=== PATIENT | female | born 1945 | race Caucasian/White ===

== ENCOUNTER 2023-01-05 05:19 | Day surgery (SDC) | payer OTHER ==
[2023-01-05 10:21] LABS: HEMATOCRIT 22.2 % (32.4-45.2); HEMOGLOBIN 7.1 GM/dL (10.7-15.3); MCH 33.5 pg (25.7-33.7); MCHC 31.9 g/dl (32.0-36.0); MEAN PLT VOLUME 9.9 fl (7.5-11.1); PLATELET COUNT 684 10^3/uL (134-434); RBC 2.11 M/mm3 (3.60-5.2); RDW 29.3 % (11.6-15.6)
[2023-01-05 10:34] LABS: INR 1.14 (0.83-1.09); PROTHROMBIN TIME (PATIENT) 13.2 SEC (9.7-13.0)
[2023-01-05 10:48] VITALS: RESP 18
[2023-01-05 11:01] LABS: ANISOCYTOSIS 2+; MACROCYTOSIS 1+
[2023-01-05] MEDS ORDERED: FENTANYL CITRATE/PF 50 MCG/ML VIAL ONE (12:49)
[2023-01-05] MEDS ORDERED: MIDAZOLAM HCL 2 MG/2 ML SINGLE DOSE VIAL ONE (12:49)
[2023-01-05 16:45] VITALS: BP 131/50; PULSE 70; TEMP 98.2
== END 2023-01-05 16:45 | disposition home or self-care (01) ==
LOC: JRADIR 05:19
PROVIDERS: ATTEND Internal Medicine Hematology & Oncology
PROC: 0JH63WZ Insertion of Totally Implantable Vascular Access Device into Chest Subcutaneous Tissue and Fascia, Percutaneous Approach (ICD-10-PCS; principal; 2023-01-05)
PROC: 05HM33Z Insertion of Infusion Device into Right Internal Jugular Vein, Percutaneous Approach (ICD-10-PCS; 2023-01-05)
PROC: B513YZA Fluoroscopy of Right Jugular Veins using Other Contrast, Guidance (ICD-10-PCS; 2023-01-05)
DX: D46.9 Myelodysplastic syndrome, unspecified (principal)
CPT/HCPCS: 36558; 77001; C1751; 36415; 36561; 82962; 85025; 85610; C1788

== ENCOUNTER 2023-01-19 14:50 | Inpatient (IN) | payer OTHER ==
[2023-01-19 15:13] VITALS: BMI 31.1
[2023-01-19 17:28] LABS: POTASSIUM 4.8 mmol/L (3.5-5.1)
[2023-01-19 17:29] LABS: BASO % 1.5 % (0-2.0); EOS % 1.7 % (0-4.5); HEMATOCRIT 18.9 % (32.4-45.2); LYMPH % 62.4 % (8-40); MCH 34.8 pg (25.7-33.7); MCHC 33.1 g/dl (32.0-36.0); MEAN CELL VOLUME 105.2 fl (80-96); MEAN PLT VOLUME 10.3 fl (7.5-11.1); MONO % 0.8 % (3.8-10.2); NEUT % 33.6 % (42.8-82.8); PLATELET COUNT 302 10^3/uL (134-434); RBC 1.79 M/mm3 (3.60-5.2); RDW 25.9 % (11.6-15.6); WHITE BLOOD COUNT 2.5 K/mm3 (4.0-10.0)
[2023-01-19 17:30] LABS: ALBUMIN 3.7 g/dl (3.4-5.0); BLOOD UREA NITROGEN 21.2 mg/dL (7-18); CALCIUM 9.2 mg/dL (8.5-10.1)
[2023-01-19 17:32] LABS: HEMOGLOBIN 6.2 GM/dL (10.7-15.3)
[2023-01-19 17:33] LABS: CREATININE 0.8 mg/dL (0.55-1.3)
[2023-01-19 17:35] LABS: BILIRUBIN,TOTAL 0.5 mg/dL (0.2-1)
[2023-01-19 18:26] LABS: ANISOCYTOSIS 3+; MACROCYTOSIS 1+; TARGET CELLS 1+
[2023-01-19 18:34] LABS: EPI CELLS 24 /uL (0-25.1); HYALINE CASTS 0 /uL (0-3.1); PH,URINE 7.5 (5.0-8.0); URINE APPEARANCE CLEAR; URINE BACTERIA 84 /uL (0-1359); URINE BILIRUBIN NEGATIVE (NEGATIVE); URINE COLOR YELLOW; URINE GLUCOSE (UA) NEGATIVE (NEGATIVE); URINE KETONE NEGATIVE (NEGATIVE); URINE LEUK ESTERASE 2+ (NEGATIVE); URINE NITRITE NEGATIVE (NEGATIVE); URINE PROTEIN NEGATIVE (NEGATIVE); URINE RBC 12 /uL (0-23.9); URINE UROBILINOGEN 0.2 mg/dL (0.2-1.0); URINE WBC 46 /uL (0-25.8)
[2023-01-19 18:41] LABS: INR 1.13 (0.83-1.09); PROTHROMBIN TIME (PATIENT) 13.1 SEC (9.7-13.0)
[2023-01-19 18:43] LABS: ACTIVATED PTT 30.3 SECONDS (25.2-36.5)
[2023-01-19] MEDS ORDERED: CEFEPIME HCL/D5W 1 GM/50 ML BAG IVPB ONE (19:12)
[2023-01-19] MEDS ORDERED: VANCOMYCIN 1 GM in D5W (PRE-DOCKED) 1,000 MG/250 ML (RESTRICTED TO ID ONLY IVPB ONE (19:12)
[2023-01-19] MEDS ORDERED: VANCOMYCIN/WATER FOR INJ (PEG) 1,000 MG/200 ML BAG IVPB ONE (19:24)
[2023-01-19] MEDS ORDERED: CEFEPIME 1 GM/100 ML BAG IVPB ONE (19:24)
[2023-01-19] MEDS ORDERED: ACETAMINOPHEN 325 MG TABLET (FP) PO PRN (23:07)
[2023-01-19] MEDS ORDERED: ALBUTEROL SO4 HFA INHALER IH PRN (23:07)
[2023-01-20] MEDS: GABAPENTIN 400 MG CAPSULE PO SCH ×2 (02:21→22:36)
[2023-01-20] MEDS: ENOXAPARIN NA (PORCINE) 40 MG/0.4 ML DISP.SYRIN SQ SCH (09:49)
[2023-01-20] MEDS ORDERED: CEFEPIME 1 GM in DEXTROSE 5%-WATER - 100 ML IVPB SCH (10:00)
[2023-01-20] MEDS ORDERED: VANCOMYCIN 1 GM in D5W (PRE-DOCKED) 1,000 MG/250 ML (RESTRICTED TO ID ONLY IVPB SCH (10:00)
[2023-01-20] MEDS ORDERED: INSULIN (NOVOLOG) ASPART 100 UNITS/ML 10ML VIAL ONE (11:52)
[2023-01-20] MEDS: INSULIN SLIDING SCALE (NOVOLOG) 1 VIAL SQ SCH ×5 (11:58→22:43)
[2023-01-20] MEDS ORDERED: VANCOMYCIN 1 GM/200 ML PREMIX BAG (RESTRICTED TO ID ONLY) IVPB SCH (12:00)
[2023-01-20] MEDS: CEFEPIME 1 GM in DEXTROSE 5%-WATER 100 ML IVPB SCH ×3 (12:09→18:27)
[2023-01-20 13:41] LABS: HEMATOCRIT 22.5 % (32.4-45.2); HEMOGLOBIN 7.3 GM/dL (10.7-15.3); MCH 32.7 pg (25.7-33.7); MCHC 32.4 g/dl (32.0-36.0); MEAN CELL VOLUME 100.7 fl (80-96); MEAN PLT VOLUME 10.2 fl (7.5-11.1); PLATELET COUNT 249 10^3/uL (134-434); RBC 2.23 M/mm3 (3.60-5.2); WHITE BLOOD COUNT 2.2 K/mm3 (4.0-10.0)
[2023-01-20 14:11] LABS: POTASSIUM 4.7 mmol/L (3.5-5.1)
[2023-01-20 14:15] LABS: ALBUMIN 3.2 g/dl (3.4-5.0); BLOOD UREA NITROGEN 20.8 mg/dL (7-18); CALCIUM 8.8 mg/dL (8.5-10.1); MAGNESIUM 1.8 mg/dL (1.8-2.4)
[2023-01-20 14:17] LABS: PHOSPHOROUS 3.3 mg/dL (2.5-4.9)
[2023-01-20 14:18] LABS: CREATININE 0.9 mg/dL (0.55-1.3)
[2023-01-20 14:19] LABS: BILIRUBIN,TOTAL 0.7 mg/dL (0.2-1); TOT PROT 7.2 g/dl (6.4-8.2)
[2023-01-20 14:27] LABS: ANISOCYTOSIS 2+; MACROCYTOSIS 1+
[2023-01-20] MEDS ORDERED: PATIENT'S OWN MEDICATION (NON-FORMULARY) (Insulin Degludec [Tresiba Flextouch U-200] 200 U SQ SCH (22:00)
[2023-01-20] MEDS ORDERED: CEFEPIME 1 GM in DEXTROSE 5%-WATER 100 ML IVPB SCH (22:00)
[2023-01-20] MEDS: INSULIN (LEVEMIR) 100 UNITS/ML UNITS SQ SCH (22:34)
[2023-01-20] MEDS: VANCOMYCIN/WATER FOR INJ (PEG) 1,000 MG/200 ML BAG IVPB SCH (23:12)
[2023-01-21] MEDS: CEFEPIME 1 GM in DEXTROSE 5%-WATER 100 ML IVPB SCH ×3 (02:47→17:50)
[2023-01-21] MEDS: INSULIN SLIDING SCALE (NOVOLOG) 1 VIAL SQ SCH ×4 (06:50→21:58)
[2023-01-21] MEDS: ENOXAPARIN NA (PORCINE) 40 MG/0.4 ML DISP.SYRIN SQ SCH (09:39)
[2023-01-21] MEDS: VANCOMYCIN/WATER FOR INJ (PEG) 1,000 MG/200 ML BAG IVPB SCH ×2 (11:53→23:33)
[2023-01-21 11:57] LABS: BASO % 0.3 % (0-2.0); EOS % 1.5 % (0-4.5); HEMOGLOBIN 7.3 GM/dL (10.7-15.3); LYMPH % 59.8 % (8-40); MCH 34.2 pg (25.7-33.7); MCHC 34.6 g/dl (32.0-36.0); MEAN CELL VOLUME 98.7 fl (80-96); MEAN PLT VOLUME 9.8 fl (7.5-11.1); MONO % 2.2 % (3.8-10.2); NEUT % 36.2 % (42.8-82.8); PLATELET COUNT 211 10^3/uL (134-434); RBC 2.13 M/mm3 (3.60-5.2)
[2023-01-21 12:26] LABS: POTASSIUM 4.3 mmol/L (3.5-5.1)
[2023-01-21 12:30] LABS: CALCIUM 8.6 mg/dL (8.5-10.1)
[2023-01-21 12:33] LABS: BLOOD UREA NITROGEN 16.3 mg/dL (7-18)
[2023-01-21] MEDS ORDERED: INSULIN (NOVOLOG) ASPART 100 UNITS/ML 10ML VIAL ONE (16:39)
[2023-01-21] MEDS: GABAPENTIN 400 MG CAPSULE PO SCH (21:57)
[2023-01-21] MEDS: INSULIN (LEVEMIR) 100 UNITS/ML UNITS SQ SCH (21:57)
[2023-01-21] MEDS: ACETAMINOPHEN 325 MG TABLET (FP) PO PRN (22:19)
[2023-01-22] MEDS: CEFEPIME 1 GM in DEXTROSE 5%-WATER 100 ML IVPB SCH ×3 (01:26→18:15)
[2023-01-22] MEDS: INSULIN SLIDING SCALE (NOVOLOG) 1 VIAL SQ SCH ×4 (06:06→21:46)
[2023-01-22] MEDS: ENOXAPARIN NA (PORCINE) 40 MG/0.4 ML DISP.SYRIN SQ SCH (09:00)
[2023-01-22 09:52] LABS: BASO % 0.8 % (0-2.0); HEMATOCRIT 23.2 % (32.4-45.2); HEMOGLOBIN 7.8 GM/dL (10.7-15.3); LYMPH % 55.9 % (8-40); MCHC 33.6 g/dl (32.0-36.0); MEAN CELL VOLUME 101.2 fl (80-96); MONO % 2.3 % (3.8-10.2); PLATELET COUNT 188 10^3/uL (134-434); RDW 24.4 % (11.6-15.6); WHITE BLOOD COUNT 2.2 K/mm3 (4.0-10.0)
[2023-01-22 10:17] LABS: BLOOD UREA NITROGEN 16.6 mg/dL (7-18); CALCIUM 8.3 mg/dL (8.5-10.1)
[2023-01-22 10:21] LABS: CREATININE 0.9 mg/dL (0.55-1.3)
[2023-01-22] MEDS: VANCOMYCIN/WATER FOR INJ (PEG) 1,000 MG/200 ML BAG IVPB SCH (14:34)
[2023-01-22] MEDS ORDERED: INSULIN (NOVOLOG) ASPART 100 UNITS/ML 10ML VIAL ONE (21:04)
[2023-01-22] MEDS: ACETAMINOPHEN 325 MG TABLET (FP) PO PRN (21:48)
[2023-01-22] MEDS: GABAPENTIN 400 MG CAPSULE PO SCH (21:49)
[2023-01-22] MEDS: INSULIN (LEVEMIR) 100 UNITS/ML UNITS SQ SCH (21:49)
[2023-01-23] MEDS: CEFEPIME 1 GM in DEXTROSE 5%-WATER 100 ML IVPB SCH ×3 (01:59→17:37)
[2023-01-23] MEDS: ENOXAPARIN NA (PORCINE) 40 MG/0.4 ML DISP.SYRIN SQ SCH (10:32)
[2023-01-23] MEDS: ACETAMINOPHEN 325 MG TABLET (FP) PO PRN ×2 (10:35→21:19)
[2023-01-23] MEDS: INSULIN SLIDING SCALE (NOVOLOG) 1 VIAL SQ SCH ×4 (13:00→21:16)
[2023-01-23] MEDS ORDERED: VANCOMYCIN/WATER FOR INJ (PEG) 1,000 MG/200 ML BAG IVPB ONE (17:23)
[2023-01-23] MEDS: GABAPENTIN 400 MG CAPSULE PO SCH (21:16)
[2023-01-23] MEDS: INSULIN (LEVEMIR) 100 UNITS/ML UNITS SQ SCH (21:17)
[2023-01-24] MEDS: CEFEPIME 1 GM in DEXTROSE 5%-WATER 100 ML IVPB SCH ×3 (01:08→17:27)
[2023-01-24] MEDS: INSULIN SLIDING SCALE (NOVOLOG) 1 VIAL SQ SCH ×5 (06:14→22:07)
[2023-01-24] MEDS: ACETAMINOPHEN 325 MG TABLET (FP) PO PRN ×2 (07:46→21:42)
[2023-01-24] MEDS: ENOXAPARIN NA (PORCINE) 40 MG/0.4 ML DISP.SYRIN SQ SCH (10:17)
[2023-01-24] MEDS ORDERED: INSULIN (NOVOLOG) ASPART 100 UNITS/ML 10ML VIAL ONE (21:25)
[2023-01-24] MEDS: GABAPENTIN 400 MG CAPSULE PO SCH (21:42)
[2023-01-24] MEDS: INSULIN (LEVEMIR) 100 UNITS/ML UNITS SQ SCH (21:43)
[2023-01-25] MEDS: CEFEPIME 1 GM in DEXTROSE 5%-WATER 100 ML IVPB SCH ×2 (02:28→09:27)
[2023-01-25] MEDS: INSULIN SLIDING SCALE (NOVOLOG) 1 VIAL SQ SCH ×4 (06:03→21:50)
[2023-01-25 08:18] LABS: HEMATOCRIT 23.4 % (32.4-45.2); HEMOGLOBIN 7.9 GM/dL (10.7-15.3); MCH 33.7 pg (25.7-33.7); MCHC 33.6 g/dl (32.0-36.0); MEAN CELL VOLUME 100.2 fl (80-96); MEAN PLT VOLUME 10.1 fl (7.5-11.1); PLATELET COUNT 162 10^3/uL (134-434); RBC 2.33 M/mm3 (3.60-5.2); WHITE BLOOD COUNT 2.6 K/mm3 (4.0-10.0)
[2023-01-25 08:38] LABS: POTASSIUM 4.2 mmol/L (3.5-5.1)
[2023-01-25 08:40] LABS: ALBUMIN 3.6 g/dl (3.4-5.0); BLOOD UREA NITROGEN 13.5 mg/dL (7-18); CALCIUM 8.7 mg/dL (8.5-10.1)
[2023-01-25 08:44] LABS: CREATININE 0.9 mg/dL (0.55-1.3)
[2023-01-25 08:45] LABS: BILIRUBIN,TOTAL 0.5 mg/dL (0.2-1); TOT PROT 7.9 g/dl (6.4-8.2)
[2023-01-25 09:24] LABS: ANISOCYTOSIS 2+; MACROCYTOSIS 0
[2023-01-25] MEDS: ENOXAPARIN NA (PORCINE) 40 MG/0.4 ML DISP.SYRIN SQ SCH (09:27)
[2023-01-25] MEDS: ACETAMINOPHEN 325 MG TABLET (FP) PO PRN ×2 (15:17→21:50)
[2023-01-25] MEDS ORDERED: INSULIN (NOVOLOG) ASPART 100 UNITS/ML 10ML VIAL ONE (16:27)
[2023-01-25] MEDS: INSULIN (LEVEMIR) 100 UNITS/ML UNITS SQ SCH (21:49)
[2023-01-25] MEDS: GABAPENTIN 400 MG CAPSULE PO SCH (21:50)
[2023-01-26] MEDS: INSULIN SLIDING SCALE (NOVOLOG) 1 VIAL SQ SCH ×4 (05:59→21:21)
[2023-01-26] MEDS: ENOXAPARIN NA (PORCINE) 40 MG/0.4 ML DISP.SYRIN SQ SCH (10:57)
[2023-01-26] MEDS ORDERED: INSULIN (NOVOLOG) ASPART 100 UNITS/ML 10ML VIAL ONE (21:14)
[2023-01-26] MEDS: ACETAMINOPHEN 325 MG TABLET (FP) PO PRN (21:17)
[2023-01-26] MEDS: GABAPENTIN 400 MG CAPSULE PO SCH (21:17)
[2023-01-26] MEDS: INSULIN (LEVEMIR) 100 UNITS/ML UNITS SQ SCH (21:18)
[2023-01-27] MEDS: INSULIN SLIDING SCALE (NOVOLOG) 1 VIAL SQ SCH ×4 (06:19→21:22)
[2023-01-27] MEDS: ENOXAPARIN NA (PORCINE) 40 MG/0.4 ML DISP.SYRIN SQ SCH (10:58)
[2023-01-27] MEDS ORDERED: INSULIN (NOVOLOG) ASPART 100 UNITS/ML 10ML VIAL ONE ×2 (12:01→21:03)
[2023-01-27] MEDS: INSULIN (LEVEMIR) 100 UNITS/ML UNITS SQ SCH (21:22)
[2023-01-27] MEDS: GABAPENTIN 400 MG CAPSULE PO SCH (21:23)
[2023-01-27] MEDS: ACETAMINOPHEN 325 MG TABLET (FP) PO PRN (21:23)
[2023-01-28] MEDS: INSULIN SLIDING SCALE (NOVOLOG) 1 VIAL SQ SCH ×4 (06:40→21:36)
[2023-01-28 09:52] LABS: HEMATOCRIT 23.9 % (32.4-45.2); HEMOGLOBIN 7.9 GM/dL (10.7-15.3); MCH 34.2 pg (25.7-33.7); MEAN CELL VOLUME 103.6 fl (80-96); MEAN PLT VOLUME 10.6 fl (7.5-11.1); PLATELET COUNT 160 10^3/uL (134-434); RDW 26.1 % (11.6-15.6); WHITE BLOOD COUNT 2.4 K/mm3 (4.0-10.0)
[2023-01-28] MEDS: ENOXAPARIN NA (PORCINE) 40 MG/0.4 ML DISP.SYRIN SQ SCH (11:08)
[2023-01-28] MEDS ORDERED: INSULIN (NOVOLOG) ASPART 100 UNITS/ML 10ML VIAL ONE (21:05)
[2023-01-28] MEDS: INSULIN (LEVEMIR) 100 UNITS/ML UNITS SQ SCH (21:35)
[2023-01-28] MEDS: GABAPENTIN 400 MG CAPSULE PO SCH (21:36)
[2023-01-28] MEDS: ACETAMINOPHEN 325 MG TABLET (FP) PO PRN (21:36)
[2023-01-29] MEDS: INSULIN SLIDING SCALE (NOVOLOG) 1 VIAL SQ SCH (06:06)
[2023-01-29] MEDS ORDERED: LIDOCAINE HCL 1%, 10 MG/ML (10ML VIAL) MDV ONE (10:30)
[2023-01-29] MEDS ORDERED: ONDANSETRON 4 MG/2 ML VIAL IVPUSH PRN (11:01)
[2023-01-29] MEDS ORDERED: PROMETHAZINE HCL 25 MG/1 ML VIAL IVPB PRN (11:01)
[2023-01-29] MEDS ORDERED: oxyCODONE HCL 5 MG TABLET PO PRN (11:01)
[2023-01-29] MEDS ORDERED: MIDAZOLAM HCL 2 MG/2 ML SINGLE DOSE VIAL ONE (11:09)
[2023-01-29] MEDS ORDERED: PROPOFOL 20 ML ONE (11:09)
[2023-01-29] MEDS ORDERED: LACTATED RINGERS SOLUTION 1,000 ML IV SCH (11:15)
[2023-01-29] MEDS ORDERED: LIDOCAINE 1% P/F 10 MG/ML VIAL INF ONE (11:19)
[2023-01-29] MEDS: ENOXAPARIN NA (PORCINE) 40 MG/0.4 ML DISP.SYRIN SQ SCH (11:25)
[2023-01-29 12:49] VITALS: PULSE 70; RESP 14; TEMP 98
[2023-01-29 12:50] VITALS: BP 121/40
== END 2023-01-29 17:00 | disposition home or self-care (01) | DRG 315 ==
LOC: JER 14:50 → JERBED 21:06 → J7W 23:48
PROVIDERS: ADMIT Internal Medicine; ATTEND Internal Medicine
PROC: 0JPT0WZ Removal of Totally Implantable Vascular Access Device from Trunk Subcutaneous Tissue and Fascia, Open Approach (ICD-10-PCS; principal; 2023-01-29 10:00)
DX: T80.212A Local infection due to central venous catheter, initial encounter (principal); I45.2 Bifascicular block; N39.0 Urinary tract infection, site not specified; L03.313 Cellulitis of chest wall; T82.838A Hemorrhage due to vascular prosthetic devices, implants and grafts, initial encounter; B99.8 Other infectious disease; B95.1 Streptococcus, group B, as the cause of diseases classified elsewhere; E10.9 Type 1 diabetes mellitus without complications; I10 Essential (primary) hypertension; D46.9 Myelodysplastic syndrome, unspecified; D70.9 Neutropenia, unspecified; E78.5 Hyperlipidemia, unspecified; D69.6 Thrombocytopenia, unspecified; G62.9 Polyneuropathy, unspecified; Y84.8 Other medical procedures as the cause of abnormal reaction of the patient, or of later complication, without mention of misadventure at the time of the procedure
CPT/HCPCS: 36415; 36430; 71046-TC-FY; 71270-TC; 76604; 80048; 80053; 81003; 82962; 83735; 84100; 85025; 85027; 85610; 85730; 86850; 86900; 86901; 86922; 87040; 87070; 87077; 87086; 87186; 93005; 93010; 94760; 99285-25; G0480; J1644; P9058; Q9967

== ENCOUNTER 2023-06-09 08:30 | Observation (INO) | payer OTHER ==
[2023-06-09 08:53] VITALS: BMI 32.8
[2023-06-09 10:18] LABS: INR 1.02 (0.83-1.09); PROTHROMBIN TIME (PATIENT) 11.8 SEC (9.7-13.0)
[2023-06-09 10:24] LABS: MCH 34.3 pg (25.7-33.7); MCHC 32.8 g/dl (32.0-36.0); MEAN CELL VOLUME 104.6 fl (80-96); MEAN PLT VOLUME 10.8 fl (7.5-11.1); RBC 1.34 M/mm3 (3.60-5.2)
[2023-06-09 10:25] LABS: WHITE BLOOD COUNT 2.2 K/mm3 (4.0-10.0)
[2023-06-09 10:26] LABS: PLATELET COUNT 60 10^3/uL (134-434)
[2023-06-09 10:29] LABS: HEMOGLOBIN 4.6 GM/dL (10.7-15.3)
[2023-06-09 10:38] LABS: POTASSIUM 4.1 mmol/L (3.5-5.1)
[2023-06-09 10:40] LABS: CALCIUM 8.5 mg/dL (8.5-10.1)
[2023-06-09 10:41] LABS: ALBUMIN 3.3 g/dl (3.4-5.0); BLOOD UREA NITROGEN 18.8 mg/dL (7-18)
[2023-06-09 10:46] LABS: BILIRUBIN,TOTAL 0.5 mg/dL (0.2-1)
[2023-06-09 10:48] LABS: ACTIVATED PTT 16.6 SECONDS (25.2-36.5)
[2023-06-09 11:41] VITALS: RESP 14
[2023-06-09 13:50] LABS: ANISOCYTOSIS 2+; MACROCYTOSIS 1+; OVALOCYTE 2+; TEAR DROP CELLS 2+
[2023-06-09 14:30] VITALS: BP 101/39; PULSE 68; TEMP 98.1
[2023-06-09] MEDS ORDERED: ALBUTEROL SO4 HFA INHALER IH PRN (15:52)
[2023-06-09 17:14] LABS: HEMATOCRIT 21.2 % (32.4-45.2); HEMOGLOBIN 7.1 GM/dL (10.7-15.3); MCH 32.7 pg (25.7-33.7); MCHC 33.4 g/dl (32.0-36.0); MEAN CELL VOLUME 97.8 fl (80-96); MEAN PLT VOLUME 9.8 fl (7.5-11.1); PLATELET COUNT 52 10^3/uL (134-434); RBC 2.17 M/mm3 (3.60-5.2); RDW 22.5 % (11.6-15.6); WHITE BLOOD COUNT 2.4 K/mm3 (4.0-10.0)
[2023-06-09] MEDS ORDERED: INSULIN (LEVEMIR) 100 UNITS/ML UNITS SQ SCH (22:00)
[2023-06-09] MEDS ORDERED: GABAPENTIN 400 MG CAPSULE PO SCH (22:00)
[2023-06-10] MEDS ORDERED: INSULIN (NOVOLOG) ASPART 100 UNITS/ML 10ML VIAL SQ SCH (07:00)
[2023-06-10] MEDS ORDERED: LORATADINE 10 MG TABLET PO SCH (10:00)
== END 2023-06-09 20:13 | disposition home or self-care (01) ==
LOC: JER 08:30 → JERBED 13:39
PROVIDERS: ADMIT Internal Medicine; ATTEND Internal Medicine
PROC: 30233N1 Transfusion of Nonautologous Red Blood Cells into Peripheral Vein, Percutaneous Approach (ICD-10-PCS; principal; 2023-06-09)
DX: D64.9 Anemia, unspecified (principal); E10.9 Type 1 diabetes mellitus without complications; E66.9 Obesity, unspecified; D61.818 Other pancytopenia
CPT/HCPCS: 36415; 36430; 80053; 85025; 85027; 85610; 85730; 86850; 86900; 86901; 86922; 99285-25; G0378; P9058